=== PATIENT | male | born 1995 | race African-American/Black ===

== ENCOUNTER 2018-09-11 17:19 | Emergency (ER) | payer SELFPAY ==
[2018-09-11 17:49] VITALS: BP 140/75
[2018-09-11] MEDS ORDERED: Cephalexin CAP* 500 MG PO ONE (18:24)
--- NOTE | 2018-09-11 18:26 | UC ---
Skin Complaint HPI - HPI Summary HPI Summary: patient has a red, large area of induration, states it started draining last night, - History of Current Complaint Chief Complaint: UCSkin Time Seen by Provider: 09/11/18 18:10 Stated Complaint: RT LEG COMPLAINT Hx Obtained From: Patient Onset/Duration: Sudden Onset, Lasting Days - 2 Skin Exposure Onset/Duration: Days Ago Timing: Constant Onset Severity: Moderate Current Severity: Moderate Pain Intensity: 0 Location: Discrete Character: Swelling, Redness, Raised, Painful Aggravating Factor(s): Touch Alleviating Factor(s): Nothing - Allergy/Home Medications Allergies/Adverse Reactions: Allergies Allergy/AdvReac Type Severity Reaction Status Date / Time No Known Allergies Allergy Verified 09/11/18 17:49 Review of Systems Constitutional: Negative Skin: Other - abcess Eyes: Negative ENT: Negative Respiratory: Negative Cardiovascular: Negative Gastrointestinal: Negative Genitourinary: Negative Motor: Negative Neurovascular: Negative Musculoskeletal: Negative Neurological: Negative Psychological: Negative Is Patient Immunocompromised?: No All Other Systems Reviewed And Are Negative: Yes PMH/Surg Hx/FS Hx/Imm Hx Previously Healthy: Yes - Surgical History Surgical History: None - Family History Known Family History: Negative: Cardiac Disease, Hypertension - Social History Alcohol Use: Rare Substance Use Type: None Smoking Status (MU): Never Smoked Tobacco Physical Exam Triage Information Reviewed: Yes Appearance: Well-Appearing, Well-Nourished, Pain Distress Vital Signs: Initial Vital Signs Temp 98.3 F 09/11/18 17:46 Pulse 62 09/11/18 17:46 Resp 18 09/11/18 17:46 BP 140/75 09/11/18 17:46 Pulse Ox 99 09/11/18 17:46 Vital Signs Reviewed: Yes Eye Exam: Normal ENT Exam: Normal Dental Exam: Normal Neck exam: Normal Respiratory Exam: Normal Respiratory: Positive: Chest non-tender, Lungs clear, Normal breath sounds Cardiovascular Exam: Normal Cardiovascular: Positive: RRR, No Murmur, Pulses Normal Abdominal Exam: Normal Abdomen Description: Positive: Nontender, No Organomegaly, Soft Musculoskeletal Exam: Normal Neurological Exam: Normal Psychological Exam: Normal Skin: Positive: significant lesion(s) - small 4 cm innduration ans erythema with a pustule head Course/Dx - Course Course Of Treatment: hx obtained, exam performed, meds reviewed i and d of abcess, wound culture obtained. - Differential Diagnoses - Skin Complaint Differential Diagnoses: Abscess, Other - folliculitis - Diagnoses Provider Diagnoses: abcess of right lower leg Discharge - Sign-Out/Discharge Documenting (check all that apply): Patient Departure All imaging exams completed and their final reports reviewed: Yes - Discharge Plan Condition: Stable Disposition: HOME Prescriptions: Cephalexin CAP* [Keflex CAP*] 500 mg PO TID #20 cap Patient Education Materials: Abscess (ED) Referrals: Sunny Guzmán MD [Primary Care Provider] - Additional Instructions: 1. take the medication as prescribed. 2. Warm compresses to the area twice a day until clear 3. Follow up if needed - Billing Disposition and Condition Condition: STABLE Disposition: Home
== END 2018-09-11 18:33 | disposition home or self-care (01) ==
LOC: UCCORT 17:19
DX: L02.415 Cutaneous abscess of right lower limb (principal)
CPT/HCPCS: 87070; 87077; 87186; 87205; 99202; A9270-GY; G0463